=== PATIENT | female | born 2000 | race Hispanic/Latino ===

== ENCOUNTER 2020-12-10 02:10 | Emergency (ER) | payer MEDICAID, OTHER ==
[2020-12-10] MEDS ORDERED: Acetaminophen 325 MG TAB ONE (02:48)
[2020-12-10] MEDS ORDERED: predniSONE 20 MG TAB ONE (02:48)
== END 2020-12-10 02:59 | disposition home or self-care (01) ==
LOC: MADERS 02:10
DX: J02.9 Acute pharyngitis, unspecified (principal); E03.9 Hypothyroidism, unspecified; Z79.899 Other long term (current) drug therapy
CPT/HCPCS: 87081; 87430; 99283; J7512

== ENCOUNTER 2021-01-06 10:28 | Emergency (ER) | payer OTHER ==
[~2021-01-06 10:28] MED LIST: Sodium Chloride 0.9% 1,000 ML BAG ONE
[2021-01-06] MEDS ORDERED: Acetaminophen 500 MG TAB ONE (10:53)
[2021-01-06] MEDS ORDERED: Ondansetron PF 4 MG/2 ML Vial ONE (10:53)
[2021-01-06 10:57] LABS: Bilirubin Negative (Negative); Blood, Urine Moderate (Negative); Glucose, Urine (Dipstick) Negative (Negative); Ketone, Urine > or equal to 80 mg/dL (Negative); Leukocyte Large (Negative); Nitrite Positive (Negative); Protein, Urine (Dipstick) 100 mg/dL (Neg-Trace)
[2021-01-06 10:58] LABS: Clarity Cloudy (Clear)
[2021-01-06 11:16] LABS: Bacteria/HPF 2+ HPF (None Seen); WBC/HPF Greater Than 50 HPF (0-3)
[2021-01-06 11:17] LABS: #Basophils 0.1 thou/uL (0.0-0.2); #Lymphocytes 1.4 thou/uL (1.20-3.40); #Neutrophils 10.6 thou/uL (1.40-6.50); %Basophils 0.5 % (0.0-1.0); %Eosinophils 0.1 % (0.0-10.0); %Lymphocytes 10.8 % (21.0-51.0); %Monocytes 7.7 % (0.0-10.0); Mean Corpuscular HGB CONC 32.6 g/dL (32.0-36.0); Mean Corpuscular Hemoglobin 29.8 pg (27.0-31.0); Mean Corpuscular Volume 91.3 fL (78.0-98.0); Mean Platelet Volume 9.1 fL (7.4-10.4); Platelet Count 237 thou/uL (130-400); RBC Distribution Width 13.2 % (11.5-14.5)
[2021-01-06] MEDS ORDERED: Sodium Chloride 0.9% 100 ML ONE ×2 (11:29→13:06)
[2021-01-06] MEDS ORDERED: cefTRIAXone\\ROCEPHIN 1 GM VIAL ONE ×2 (11:29→13:06)
[2021-01-06 11:31] LABS: ALT (SGPT) 18 U/L (8-55); AST (SGOT) 13 U/L (5-34); Albumin 3.5 g/dL (3.5-5.0); Alkaline Phosphatase 108 U/L (40-110); Anion Gap 16 mmol/L (10-20); BUN (Urea Nitrogen) 5 mg/dL (7.0-18.7); Bilirubin, Total 0.9 mg/dL (0.2-1.2); Calc. Creatinine Clearance 0 mL/min (70-130); Calcium 8.2 mg/dL (7.8-10.44); Carbon Dioxide 18 mmol/L (22-29); Chloride 107 mmol/L (98-107); Globulin 3.3 g/dL (2.4-3.5); Glucose 116 mg/dL (70-105); Potassium 3.5 mmol/L (3.5-5.1); Protein, Total 6.8 g/dL (6.0-8.3); Sodium 137 mmol/L (136-145)
[2021-01-06] MEDS ORDERED: Sodium Chloride 0.9% 1,000 ML ONE (13:06)
== END 2021-01-06 13:37 | disposition short-term general hospital (02) ==
LOC: MADERS 10:28
DX: O23.03 Infections of kidney in pregnancy, third trimester (principal); O99.283 Endocrine, nutritional and metabolic diseases complicating pregnancy, third trimester; E03.9 Hypothyroidism, unspecified; Z79.899 Other long term (current) drug therapy; Z3A.29 29 weeks gestation of pregnancy
CPT/HCPCS: 80053; 81003; 81015; 83605; 84443; 84484; 85025; 87040; 87077; 87086; 87186; 93005; 94760; 96365; 96366; 96375; J0696; J2405; J3490; J7050

== ENCOUNTER 2021-09-01 07:32 | Emergency (ER) | payer OTHER | END 2021-09-01 08:25 | disposition home or self-care (01) | LOC: MADERS 07:32 | DX: J06.9 Acute upper respiratory infection, unspecified (principal); E03.9 Hypothyroidism, unspecified | CPT/HCPCS: 87081; 87430; 99283 ==